=== PATIENT | male | born 1955 | race African-American/Black ===

== ENCOUNTER 2016-07-08 15:33 | Emergency (ER) | payer MEDICAID, OTHER ==
[2016-07-08] MEDS ORDERED: Adacel (T-DAP) 0.5 ML VIAL ONE (15:49)
--- NOTE | 2016-07-08 16:14 | RAD ---
LEFT FINGER THREE VIEW: 07/08/16 HISTORY: Lawnmower accident. COMPARISON: None. FINDINGS: There is an incomplete traumatic amputation of the distal phalanx, incomplete, of what appears to be the fourth distal phalanx tuft. This is open with large soft tissue laceration. Mild capsular calcification of the metacarpophalangeal joint. IMPRESSION: Open, traumatic, incomplete amputation of the tuft of the distal phalanx fourth finger. POS: [facility]
== END 2016-07-08 16:58 | disposition left against medical advice (07) ==
LOC: NAV ERS 15:33
DX: S61.315A Laceration without foreign body of left ring finger with damage to nail, initial encounter (principal); F17.200 Nicotine dependence, unspecified, uncomplicated; W45.8XXA Other foreign body or object entering through skin, initial encounter
CPT/HCPCS: 90471; 90715

== ENCOUNTER 2016-10-08 08:47 | Observation (INO) | payer OTHER ==
[2016-10-08 09:35] LABS: INR-International Normal Ratio 1.1; Prothrombin Time 13.8 SEC (12.0-14.7)
[2016-10-08 09:45] LABS: ALT (SGPT) 27 U/L (8-55); AST (SGOT) 46 U/L (5-34); Alkaline Phosphatase 84 U/L (40-150); Anion Gap 14 mmol/L (10-20); BUN (Urea Nitrogen) 13 mg/dL (8.4-25.7); Bilirubin, Total 0.5 mg/dL (0.2-1.2); Calc. Creatinine Clearance 0 mL/min (70-130); Calcium 8.7 mg/dL (7.8-10.44); Carbon Dioxide 22 mmol/L (23-31); Chloride 107 mmol/L (98-107); Estimated GFR-MDRD Greater than 90; Glucose 100 mg/dL (80-115); Potassium 3.8 mmol/L (3.5-5.1); Sodium 139 mmol/L (136-145)
[2016-10-08 09:49] LABS: Hemoglobin 12.8 g/dL (14.0-18.0); Mean Corpuscular HGB CONC 33.4 g/dL (32.0-36.0); Mean Corpuscular Hemoglobin 28.8 pg (27.0-31.0); Mean Corpuscular Volume 86.4 fl (80.0-94.0); Mean Platelet Volume 7.1 fL (7.4-10.4); Platelet Count 236 thou/uL (130-400); RBC Distribution Width 12.4 % (11.5-14.5); Red Blood Cell (RBC) Count 4.42 mill/uL (4.70-6.10)
[2016-10-08 09:50] LABS: Band 3 % (5-11); Hypochromia SLIGHT = 6-15 cells (100X) (0-5/hpf); Lymphocytes 18 % (21-51); MDiff Complete? YES; Monocytes 5 % (0-10); Neutrophil 74 % (42-75); PLT Morphology Comment Appears Adequate
--- NOTE | 2016-10-08 09:56 | CT ---
CT BRAIN: DATE: 10/08/16. PROVIDED CLINICAL HISTORY: Head pain status post injury. FINDINGS: The ventricular system appears normal in size and morphology. There is no evidence for intracranial hemorrhage or mass effect. The extracranial soft tissues and osseous structures demonstrate an unr emarkable CT appearance. IMPRESSION: No evidence for intracranial hemorrhage or mass effect. POS: [facility]
[2016-10-08 10:02] LABS: CKMB 3.3 ng/mL (0-6.6); Troponin I Less than 0.010 ng/mL (< 0.028)
[2016-10-08] MEDS ORDERED: Sodium Chloride 0.9% 1,000 ML ONE ×2 (10:20→12:10)
[2016-10-08] MEDS ORDERED: Ketorolac Tromethamine 30 MG/ML VIAL ONE (10:21)
[2016-10-08 10:26] LABS: Alcohol Less than 10 mg/dL (Less than 10)
--- NOTE | 2016-10-08 10:29 | CT ---
EXAM: CERVICAL SPINE CT WITHOUT CONTRAST: HISTORY: The patient fell from a ladder. Posttraumatic pain. COMPARISON: None. TECHNIQUE: A cervical spine CT is performed without contrast. Sagittal and coronal reformatted images are subm itted for interpretation. FINDINGS: Visualized soft tissue neck structures, upper mediastinum, and lung apices are unremarkable. Minima l bullous changes of the lung apices are noted. There are varying degrees of central canal stenosis and foraminal narrowing on the basis of degenera tive change. Lateral masses of C1 and C2 articulate appropriately. There are degenerative changes of the intraarticular facets. Odontoid process is intact. No prevertebral soft tissue swelling. Cervical spine vertebral body height is maintained. No fract ure. IMPRESSION: No fracture. POS: [facility]
--- NOTE | 2016-10-08 10:57 | RAD ---
RIGHT HUMERUS 2 VIEWS: Date: 10/08/16 HISTORY: Fall from ladder. Eight steps high when fell down to right side. COMPARISON: None. FINDINGS: No acute fracture of the humerus. There is a small lateral osseous outgrowth of the distal humeral d ialysis. IMPRESSION: No acute fracture of the humerus. POS: [facility]
--- NOTE | 2016-10-08 10:58 | RAD ---
RIGHT SHOULDER 3 VIEWS: Date: 10/08/16 HISTORY: Fall from ladder. COMPARISON: None. FINDINGS: No acute fracture or malalignment of the right shoulder. Mild osteoarthritic disease of the acromioc lavicular joint. IMPRESSION: No acute fracture or malalignment. POS: [facility]
--- NOTE | 2016-10-08 10:58 | RAD ---
RIGHT RIBS 2 VIEWS WITH PA CHEST: Date: 10/08/16 HISTORY: Fall from ladder. COMPARISON: None. FINDINGS: No displaced rib fracture. No pneumothorax. Cardiac silhouette and mediastinal contours appear withi n normal limits. Mild degenerative change of the acromioclavicular joints. IMPRESSION: 1. No displaced rib fracture. 2. No pneumothorax or hemothorax. POS: [facility]
[2016-10-08 11:36] LABS: Bilirubin Negative (Negative); Blood, Urine Moderate (Negative); Clarity Clear (Clear); Glucose, Urine (Dipstick) Negative (Negative); Leukocyte Trace (Negative); Nitrite Negative (Negative); Protein, Urine (Dipstick) Negative (Neg-Trace); Urobilinogen 0.2 mg/dL (0.2-1.0); pH, Urine 5.5 (5.0-9.0)
[2016-10-08 11:46] LABS: Amphetamine Not Detected (NotDetected); Bacteria/HPF Rare-Few HPF (None Seen); Barbiturates Screen Not Detected (NotDetected); Benzodiazepine Screen Not Detected (NotDetected); Cocaine Metabolite Screen Detected (NotDetected); Medtox Control Line Valid? VALID (VALID); Methadone Not Detected (NotDetected); Methamphetamine Not Detected (NotDetected); Opiate Screen Not Detected (NotDetected); Other Microscopic Description NO; Oxycodone Screen Not Detected (NotDetected); Phencyclidine (PCP) Not Detected (NotDetected); Squamous Epithelial None Seen HPF (0-3); THC/Cannabinoid Screen Not Detected (NotDetected); Tricyclic Screen Not Detected (NotDetected); WBC/HPF 0-3 HPF (0-3)
[2016-10-08 12:51] VITALS: BMI 25.4
[2016-10-08] MEDS ORDERED: Ibuprofen 200 MG TAB PO PRN (14:06)
[2016-10-08] MEDS: Sodium Chloride 0.9% 1,000 ML IV SCH ×2 (14:15→22:55)
[2016-10-08] MEDS ORDERED: Milk Of Magnesia 30 ML UDCUP PO PRN (22:51)
[2016-10-09 05:21] LABS: #Basophils 0.1 thou/uL (0.0-0.2); #Eosinphils 0.2 thou/uL (0.0-0.7); #Monocytes 0.6 thou/uL (0.11-0.59); #Neutrophils 4.8 thou/uL (1.40-6.50); %Basophils 1.5 % (0.0-1.0); %Eosinophils 2.7 % (0.0-10.0); %Lymphocytes 26.2 % (21.0-51.0); %Monocytes 7.2 % (0.0-10.0); %Neutrophils 62.3 % (42.0-75.0); Hemoglobin 12.8 g/dL (14.0-18.0); Mean Corpuscular HGB CONC 33.8 g/dL (32.0-36.0); Mean Corpuscular Hemoglobin 29.3 pg (27.0-31.0); Mean Corpuscular Volume 86.7 fl (80.0-94.0); Mean Platelet Volume 7.7 fL (7.4-10.4); Platelet Count 247 thou/uL (130-400); RBC Distribution Width 12.9 % (11.5-14.5); Red Blood Cell (RBC) Count 4.36 mill/uL (4.70-6.10); White Blood Cell (WBC) Count 7.6 thou/uL (4.8-10.8)
[2016-10-09 05:42] LABS: ALT (SGPT) 23 U/L (8-55); AST (SGOT) 33 U/L (5-34); Albumin 3.4 g/dL (3.4-4.8); Alkaline Phosphatase 81 U/L (40-150); Anion Gap 11 mmol/L (10-20); BUN (Urea Nitrogen) 15 mg/dL (8.4-25.7); Bilirubin, Total 0.3 mg/dL (0.2-1.2); Calc. Creatinine Clearance 102 mL/min (70-130); Calcium 8.6 mg/dL (7.8-10.44); Carbon Dioxide 26 mmol/L (23-31); Chloride 105 mmol/L (98-107); Estimated GFR-MDRD Greater than 90; Globulin 2.8 g/dL (2.4-3.5); Glucose 102 mg/dL (80-115); Protein, Total 6.2 g/dL (5.8-8.1); Sodium 138 mmol/L (136-145)
[2016-10-09] MEDS: traMADol HCl 50 MG TAB PO PRN (11:59)
[2016-10-09] MEDS: Acetaminophen 325 MG TAB PO PRN (12:00)
--- NOTE | 2016-10-09 12:25 | HP ---
HISTORY OF PRESENT ILLNESS: Mr. Ruiz is a very pleasant 61-year-old white male that was standing on a step ladder about 8 feet high when he was sawing a limb off with a chainsaw. Apparently, the limb fell down, hit the ladder and knocked it out from underneath him. He states he fell and threw his chainsaw one way and landed on his right shoulder and then his head. Apparently, he was knocked out for 4-5 minutes according to a bystander. He felt very dizzy and nauseated, and he walked to the hospital. PAST MEDICAL HISTORY: Unremarkable. The patient states that he does not see a doctor. He states the only medical problem he has that he is blind in his right eye. He states he does not take any medicines at all and as far he knows he is not allergic to any medications. PAST SURGICAL HISTORY: The patient has a left arm injury where he apparently cut an artery. He had that repaired. He does not remember exactly when that happened. SOCIAL HISTORY: Reveals the patient drinks. Denies drugs, but he did test positive for cocaine. He also smokes and has been smoking actually for 40 plus years. FAMILY HISTORY: Reveals the patient does not know his dad. He states his mom in her 70s of diabetes. He does not know about the health of any brothers or sisters. REVIEW OF SYSTEMS: The patient denies any fever or chills. The patient denies any acute changes in his vision. He has been always blind in his right eye. The patient denies any acute changes in his hearing or ear, nose or throat maladies. The patient denies any chest pain, racing, skipping or irregular heartbeats. The patient denies any cough, cold, congestion, shortness of breath , dyspnea on exertion or wheezing. The patient states he did have some nausea after he woke up and would vomit a little bit. He denies any significant abdominal pain or black, bloody or tarry stools. Denies any constipation or diarrhea. The patient denies nocturia, hematuria, urgency, frequency or dysuria. Patient states he a kind of hurts all over from falling and hitting his right shoulder and his back or pretty much everything. The patient denies any significant skin rashes, but says he was stung by several wasps several days ago on his leg and his back. The patient does admit to being dizzy and headache, but has no focal deficits. The patient denies any anxiety or depressive disorder or any significant stressors. PHYSICAL EXAMINATION: GENERAL: This is a well-developed, well-nourished, very pleasant black male in no apparent distress at this time. VITAL SIGNS: Reveals blood pressure is somewhat elevated with most of his diastolics in the 80s-90s and most of his systolics in the upper 40s to lower 50s. Pulse is 60-80, respirations 14-18, and pain is a 9 on a scale of 10. HEENT: Reveals tenderness in the right frontotemporal area. No significant bruise yet is found. The pupils are equally round and reactive. Extraocular movements are intact. Vision is as usual. Nose and throat are somewhat dry. Patient's hearing is within normal limits. NECK: Supple, without masses, nodes or bruits. No jugular venous distention is noted. LUNGS: Chest is clear to auscultation. No rales, no rhonchi, no wheezes are heard. The patient does have some chest wall pain on the right side laterally. HEART: Reveals a regular rate and rhythm without murmurs, gallops or rubs. ABDOMEN: Soft, nontender, without organomegaly. Normal bowel sounds are noted. No rebound or guarding is noted. GENITOURINARY: Deferred. EXTREMITIES: Reveal no clubbing, cyanosis or edema, but the right shoulder continues to be a little achy, and the patient is unable to lift his right upper extremity greater than 20 degrees due to pain or abduct that right arm. Patient does have some tenderness on the right shoulder over the deltoid muscle. Pulses and reflexes are good. Lower extremities are unremarkable. The patient is oriented to person, place, and time. ASSESSMENT: 1. Acute pain secondary to trauma from falling off ladder. 2. Concussion. 3. Somewhat dehydrated. 4. Hematuria. 5. Positive for cocaine. 6. Right rib contusion. 7. Right shoulder contusion. 8. Generalized weakness. 9. Watch for DT's PLAN: The patient is admitted to observation. We will hydrate him up and continue to watch him neurologically. Most likely we will discharge him tomorrow evening. [facility]
[2016-10-09 16:52] VITALS: BP 134/83; TEMP 97.6
--- NOTE | 2016-10-10 09:29 | DIS ---
Discharged from [facility]BS. OBJECTIVE: The patient is a very pleasant 61-year-old white male while standing on a stepladder abo ut 8 feet high, sawing off a limb with a chainsaw. Apparently, the limb fell down and hit the ladde r and he fell off. He threw his chainsaw one way and he landed on his right shoulder, chest and he ad. He was knocked out according to bystanders, maybe for 4-5 minutes. He was brought to the ER an d evaluated and felt that actually all his x-rays were normal. All of his labs were normal except h e had positive cocaine. It is felt that he deserved observation. We had him admitted for neuro vital signs that have been stable. The patient's laboratory this morn ing was all normal. The patient states he is kind of achy over in his head, his shoulders, ribs and is back, but as to be expected. The patient actually is very stable, oriented to person, place and time. He is ready for discharge. PHYSICAL EXAMINATION: GENERAL: Reveals a well-developed, well-nourished, very pleasant black male, in no apparent distres s at this time. HEENT: Reveals normocephalic, nontraumatic cranium. Pupils are equally round and reactive. Extrao cular movements are intact. Nose and throat are slightly dry. NECK: Supple, without masses, nodes or bruits. CHEST: Clear to auscultation. HEART: Reveals a regular rate and rhythm without murmurs, gallops or rubs. ABDOMEN: Soft, nontender, without organomegaly. Normal bowel sounds are noted. No rebound or guar ding is noted. GENITOURINARY: Deferred. EXTREMITIES: Reveal no clubbing, cyanosis or edema. The patient has good range of motion. He stat es and shows that when he raises his hand completely straight up toward a ceiling, it aches a little bit. He has good range of motion and no impingement at this time. He has good range of motion of his neck. He can turn both sides. It is still somewhat stiff and achy, but good range of motion. Good strength. Pulses, reflexes are within normal limits. ASSESSMENT: 1. Concussion, much improved. 2. The patient is eating well. 3. Dehydration, resolved. 4. Right rib contusion. 5. Right shoulder contusion. 6. Back contusion. 7. Head contusion. 8. Generalized weakness. 9. Patient admits to 2 pints of whiskey a day. 10. Positive for cocaine. PLAN: The patient is discharged from observation. If he continues to have any musculoskeletal pain , he should see his primary care doctor and/or orthopedist. DISCHARGE MEDICATIONS: Revealed the patient has no home medications. The patient will be discharge d with Tylenol [id number] or [id number] Advil or Aleve as needed.
== END 2016-10-09 18:12 | disposition home or self-care (01) ==
LOC: NAV ERS 08:47 → NAV ACUTE 12:34
PROVIDERS: ADMIT Family Medicine; ATTEND Emergency Medicine
DX: S06.0X1A Concussion with loss of consciousness of 30 minutes or less, initial encounter (principal); G89.11 Acute pain due to trauma; E86.0 Dehydration; S40.011A Contusion of right shoulder, initial encounter; S20.211A Contusion of right front wall of thorax, initial encounter; F17.210 Nicotine dependence, cigarettes, uncomplicated; W11.XXXA Fall on and from ladder, initial encounter; R53.1 Weakness; R31.9 Hematuria, unspecified; F14.10 Cocaine abuse, uncomplicated
CPT/HCPCS: 36415; 70450; 72125; 80053; 80306; 80307; 81003; 81015; 82553; 84484; 85025; 85610; 93005; 96361; 96374; G0378; G0390; J1885; J7050

== ENCOUNTER 2019-04-22 10:46 | Emergency (ER) | payer OTHER ==
[2019-04-22] MEDS ORDERED: Sodium Chloride 0.9% 1,000 ML ONE ×2 (11:39→12:57)
[2019-04-22] MEDS ORDERED: Ondansetron PF 4 MG/2 ML Vial ONE (11:39)
[2019-04-22 12:28] LABS: ALT (SGPT) 24 U/L (8-55); AST (SGOT) 33 U/L (5-34); Albumin 4.6 g/dL (3.4-4.8); Alkaline Phosphatase 84 U/L (40-110); Anion Gap 16 mmol/L (10-20); BUN (Urea Nitrogen) 18 mg/dL (8.4-25.7); Bilirubin, Total 0.6 mg/dL (0.2-1.2); CK (CPK) 641 U/L (30-200); Calc. Creatinine Clearance 0 mL/min (70-130); Carbon Dioxide 26 mmol/L (23-31); Chloride 101 mmol/L (98-107); Estimated GFR-MDRD 88; Globulin 3.5 g/dL (2.4-3.5); Glucose 116 mg/dL (80-115); Potassium 4.1 mmol/L (3.5-5.1); Protein, Total 8.1 g/dL (5.8-8.1); Sodium 139 mmol/L (136-145)
[2019-04-22 12:29] LABS: #Basophils 0.1 thou/uL (0.0-0.2); #Monocytes 0.3 thou/uL (0.11-0.59); #Neutrophils 7.2 thou/uL (1.40-6.50); %Basophils 0.9 % (0.0-1.0); %Eosinophils 0.3 % (0.0-10.0); %Lymphocytes 11.5 % (21.0-51.0); %Monocytes 2.9 % (0.0-10.0); %Neutrophils 84.5 % (42.0-75.0); Mean Corpuscular HGB CONC 32.7 g/dL (32.0-36.0); Mean Corpuscular Hemoglobin 28.1 pg (27.0-31.0); Mean Corpuscular Volume 85.9 fL (78.0-98.0); Mean Platelet Volume 7.8 fL (7.4-10.4); Platelet Count 292 thou/uL (130-400); RBC Distribution Width 12.5 % (11.5-14.5); Red Blood Cell (RBC) Count 6.05 mill/uL (4.70-6.10); White Blood Cell (WBC) Count 8.5 thou/uL (4.8-10.8)
== END 2019-04-22 14:30 | disposition home or self-care (01) ==
LOC: NAV ERS 10:46
DX: M62.82 Rhabdomyolysis (principal); R11.2 Nausea with vomiting, unspecified; I10 Essential (primary) hypertension; J42 Unspecified chronic bronchitis; Z71.6 Tobacco abuse counseling; F17.210 Nicotine dependence, cigarettes, uncomplicated
CPT/HCPCS: 80053; 82550; 85025; 96361; 96374; 99406; J2405; J7050

== ENCOUNTER 2023-09-02 11:18 | Emergency (ER) | payer MEDICAID, MEDICARE ==
[2023-09-02 12:01] LABS: Prothrombin Time 13.4 sec (12.0-14.7)
[2023-09-02 12:02] LABS: PTT 30.1 sec (22.9-36.1)
[2023-09-02 12:05] LABS: Base Excess-Venous 0.6 mmol/L (-2.0 to 3.0); Bicarbonate (HCO3v) 25.5 mmol/L (22.0-28.0); CO2 Tension (PvCO2) 40.9 mmHg (42.0-51.0); Calcium, Ionized 1.21 mmol/L (1.15-1.33); Chloride 108 mmol/L (98-107); Hemoglobin - Calc 14.4 g/dL (14.0-18.0); Potassium 4.1 mmol/L (3.5-5.1); Sodium 143 mmol/L (138-145); T. Carbon Dioxide 26.7 mmol/L (22.0-28.0); vO2 Saturation-calc 98.4 % (60.0-85.0)
[2023-09-02 12:06] LABS: #Basophils 0.1 thou/uL (0.0-0.2); #Eosinphils 0.2 thou/uL (0.0-0.7); #Lymphocytes 1.6 thou/uL (1.20-3.40); #Monocytes 0.6 thou/uL (0.11-0.59); #Neutrophils 5.2 thou/uL (1.40-6.50); %Basophils 1.8 % (0.0-1.0); %Eosinophils 2.2 % (0.0-10.0); %Lymphocytes 20.9 % (21.0-51.0); %Monocytes 7.8 % (0.0-10.0); %Neutrophils 67.3 % (42.0-75.0); Hematocrit 40.4 % (42.0-52.0); Hemoglobin 12.7 g/dL (14.0-18.0); Mean Corpuscular HGB CONC 31.5 g/dL (32.0-36.0); Mean Corpuscular Hemoglobin 26.9 pg (27.0-31.0); Mean Corpuscular Volume 85.4 fl (78.0-98.0); Mean Platelet Volume 7.5 fL (7.4-10.4); Platelet Count 260 10x3/uL (130-400); RBC Distribution Width 12.8 % (11.5-14.5); Red Blood Cell (RBC) Count 4.73 mill/uL (4.70-6.10); White Blood Cell (WBC) Count 7.8 10x3/uL (4.8-10.8)
[2023-09-02 12:12] LABS: ALT (SGPT) 13 U/L (8-55); AST (SGOT) 19 U/L (5-34); Albumin 3.9 g/dL (3.4-4.8); Alkaline Phosphatase 80 U/L (40-110); Anion Gap 13 mmol/L (10-20); BUN (Urea Nitrogen) 13 mg/dL (8.4-25.7); Bilirubin, Total 0.5 mg/dL (0.2-1.2); CK (CPK) 258 U/L (30-200); Calc. Creatinine Clearance 0 mL/min (70-130); Calcium 9.3 mg/dL (7.8-10.44); Carbon Dioxide 23 mmol/L (23-31); Chloride 107 mmol/L (98-107); Estimated GFR 87; Globulin 3.6 g/dL (2.4-3.5); Glucose 105 mg/dL (80-115); Potassium 4.2 mmol/L (3.5-5.1); Protein, Total 7.5 g/dL (5.8-8.1); Sodium 139 mmol/L (136-145)
[2023-09-02 12:16] LABS: Acetaminophen Less than 10 mcg/mL (10.0-30.0); Alcohol Less than 10.0 mg/dL (Less than 10); Lipase 24 U/L (8-78); Salicylate Less than 8.0 mg/dL (15.0-30.0)
[2023-09-02 12:18] LABS: Troponin I 0.012 ng/mL (< 0.028)
[2023-09-02] MEDS ORDERED: niCARdipine 20MG In NaCl 20 MG/200 ML BAG ONE (12:50)
[2023-09-02 14:05] LABS: Bilirubin Negative (Negative); Blood, Urine Negative (Negative); CAUTI Indications for Culture Alt mental st,lethar; Clarity Clear (Clear); Glucose, Urine (Dipstick) Negative (Negative); Ketone, Urine Negative (Negative); Leukocyte Small (Negative); Nitrite Negative (Negative); Protein, Urine (Dipstick) Negative (Neg-Trace); RBC/HPF 0-3 HPF (0-3); Squamous Epithelial 0-3 HPF (0-3); Urobilinogen 0.2 mg/dL (Less than 2); WBC/HPF 0-3 HPF (0-3); pH, Urine 7.5 (5.0-9.0)
[2023-09-02 14:07] LABS: Urine Culture Reflex No No
[2023-09-02 14:22] LABS: Amphetamine Not Detected (NotDetected); Barbiturates Screen Not Detected (NotDetected); Benzodiazepine Screen Not Detected (NotDetected); Cocaine Metabolite Screen Not Detected (NotDetected); Methadone Not Detected (NotDetected); Methamphetamine Not Detected (NotDetected); Opiate Screen Not Detected (NotDetected); Oxycodone Screen Not Detected (NotDetected); Phencyclidine (PCP) Not Detected (NotDetected); THC/Cannabinoid Screen Not Detected (NotDetected); Tricyclic Screen Not Detected (NotDetected)
== END 2023-09-02 14:19 | disposition short-term general hospital (02) ==
LOC: NAV ERS 11:18
DX: I62.9 Nontraumatic intracranial hemorrhage, unspecified (principal); I10 Essential (primary) hypertension; R41.82 Altered mental status, unspecified; F17.210 Nicotine dependence, cigarettes, uncomplicated
CPT/HCPCS: 70450; 71045; 80053; 80306; 80307; 81001; 82330; 82435; 82550; 82803; 83605; 83690; 83735; 83880; 84132; 84295; 84484; 85014; 85025; 85610; 85730; 93005; 94760; 96365

== ENCOUNTER 2025-02-02 08:30 | Emergency (ER) | payer OTHER ==
[2025-02-02 09:12] LABS: #Basophils 0.2 thou/uL (0.0-0.2); #Eosinophils 0.1 thou/uL (0.0-0.7); #Lymphocytes 2.3 thou/uL (1.20-3.40); #Monocytes 0.1 thou/uL (0.11-0.59); #Neutrophils 2.7 thou/uL (1.40-6.50); %Basophils 3.2 % (0.0-1.0); %Eosinophils 2.1 % (0.0-10.0); %Lymphocytes 42.7 % (21.0-51.0); %Monocytes 2.5 % (0.0-10.0); %Neutrophils 49.5 % (42.0-75.0); Hematocrit 40.2 % (42.0-52.0); Hemoglobin 13.5 g/dL (14.0-18.0); Mean Corpuscular Hemoglobin 28.7 pg (27.0-31.0); Mean Corpuscular Volume 85.3 fl (78.0-98.0); Platelet Count 301 10x3/uL (130-400); Red Blood Cell (RBC) Count 4.71 mill/uL (4.70-6.10); White Blood Cell (WBC) Count 5.4 10x3/uL (4.8-10.8)
[2025-02-02 09:15] LABS: INR-International Normal Ratio 1.1; Prothrombin Time 14.0 sec (12.0-14.7)
[2025-02-02 09:16] LABS: PTT 31.2 sec (22.9-36.1)
[2025-02-02 09:23] LABS: ALT (SGPT) 8 U/L (Less than 45); AST (SGOT) 20 U/L (11-34); Albumin 3.6 g/dL (3.1-4.5); Alkaline Phosphatase 91 U/L (40-110); Anion Gap 13 mmol/L (10-20); BUN (Urea Nitrogen) 13 mg/dL (8.4-25.7); Bilirubin, Total 0.4 mg/dL (0.3-1.2); Calc. Creatinine Clearance 0 mL/min (70-130); Calcium 8.6 mg/dL (7.8-10.44); Carbon Dioxide 26 mmol/L (23-31); Chloride 104 mmol/L (98-107); Globulin 3.4 g/dL (2.4-3.5); Glucose 91 mg/dL (80-115); Potassium 4.1 mmol/L (3.5-5.1); Sodium 139 mmol/L (136-145)
[2025-02-02 09:25] LABS: Troponin I Less than 0.010 ng/mL (< 0.028)
[2025-02-02 10:20] LABS: Glucose, Urine (Dipstick) Negative (Negative); Leukocyte Negative (Negative); Protein, Urine (Dipstick) Trace mg/dL (Neg-Trace); Specific Gravity, Urine 1.015 (1.005-1.030)
[2025-02-02 10:25] LABS: CAUTI Indications for Culture Alt mental st,lethar; RBC/HPF 0-3 HPF (0-3); Urine Culture Reflex No No; WBC/HPF 0-3 HPF (0-3)
[2025-02-02] MEDS ORDERED: niCARdipine 25 MG/10 ML SDV ONE (11:39)
== END 2025-02-02 12:37 | disposition short-term general hospital (02) ==
LOC: NAV ERS 08:30
DX: H54.7 Unspecified visual loss (principal); I10 Essential (primary) hypertension; E78.5 Hyperlipidemia, unspecified; K21.9 Gastro-esophageal reflux disease without esophagitis; F17.210 Nicotine dependence, cigarettes, uncomplicated; Z79.899 Other long term (current) drug therapy; Z86.73 Personal history of transient ischemic attack (TIA), and cerebral infarction without residual deficits
CPT/HCPCS: 36416; 70450; 80053; 81001; 84484; 85025; 85610; 85730; 93005; 94760; 96365; J7050